=== PATIENT | male | born 1960 | race Two or more races ===

== ENCOUNTER 2018-04-12 07:12 | Outpatient (CLI) | payer OTHER ==
[2018-04-13] MEDS ORDERED: ODEFSEY TABLET1 EACH PO (09:05)
== END 2018-04-12 07:16 | disposition home or self-care (01) ==
LOC: LAB 07:12
DX: D21.4 Benign neoplasm of connective and other soft tissue of abdomen (principal); Z21 Asymptomatic human immunodeficiency virus [HIV] infection status; Z01.812 Encounter for preprocedural laboratory examination; Z01.811 Encounter for preprocedural respiratory examination

== ENCOUNTER 2018-04-20 05:00 | Day surgery (SDC) | payer OTHER ==
[~2018-04-20 05:00] MED LIST: ODEFSEY TABLET1 EACH PO
== END 2018-04-20 10:45 | disposition home or self-care (01) ==
LOC: CIR.AMB 05:00
DX: D17.1 Benign lipomatous neoplasm of skin and subcutaneous tissue of trunk (principal)